=== PATIENT | male | born 1960 | race Asian ===

== ENCOUNTER 2018-12-19 23:23 | Inpatient (IN) | payer BC, MEDICAID ==
[~2018-12-19] VITALS: Ht 165.1 cm; Wt 63.5 kg
[2018-12-19 23:25] VITALS: BP_SYST 116
--- NOTE | 2018-12-19 23:27 | NUR ---
Patient to ER bed 6 to gown for evaluation. Side rails up. Report given to JADE MACK.
--- NOTE | 2018-12-19 23:59 | NUR ---
Dr. Delgadillo bedside for initial Pt eval
--- NOTE | 2018-12-20 00:05 | NUR ---
Pt BIBA to ED C/O G-TUBE coming out of position. Replacement D/T tear and resistance. Pt is a resident of [facility]. No other complaints and or injuries noted. VSS no s/s of acute distress. Resting on gurney with rails up
--- NOTE | 2018-12-20 01:12 | NUR ---
Dr. Delgadillo bedside for possible G Tube reinsertion procedure. Pt in stable condition
--- NOTE | 2018-12-20 01:20 | NUR ---
Portable X Ray bedside, Pt in stable condition
[2018-12-20] MEDS ORDERED: GASTROGRAFIN 120 ML ONE (01:31)
--- NOTE | 2018-12-20 03:40 | NUR ---
ER Accu chk : 95, and bed rubber aware
[2018-12-20] MEDS ORDERED: D5/0.45 NS 1,000 ML IV ONE (04:00)
--- NOTE | 2018-12-20 04:05 | NUR ---
Joyner Cath changed to Brand New per [facility] protocol
[2018-12-20] MEDS ORDERED: TYLL650 GT (04:18)
[2018-12-20] MEDS ORDERED: LABE300T3 GT (04:18)
[2018-12-20] MEDS ORDERED: CHLO237L3 TP (04:18)
[2018-12-20] MEDS ORDERED: LEVETIRACETAM GT (04:18)
[2018-12-20] MEDS ORDERED: ALBU2.5V7 INH (04:18)
[2018-12-20] MEDS ORDERED: HYT1 GT (04:18)
[2018-12-20] MEDS ORDERED: CILO50TA GT (04:18)
[2018-12-20] MEDS ORDERED: DOCU-144 GT (04:18)
[2018-12-20] MEDS ORDERED: ATRMDI INH (04:18)
[2018-12-20] MEDS ORDERED: OMEP20CA10 GT (04:18)
[2018-12-20] MEDS ORDERED: NOR10 GT (04:18)
[2018-12-20] MEDS ORDERED: BETH10TA8 GT (04:18)
[2018-12-20] MEDS ORDERED: SENN8.6T19 GT (04:18)
[2018-12-20] MEDS ORDERED: UTI-STAT GT (04:18)
--- NOTE | 2018-12-20 04:31 | NUR ---
Transfer to Telemetry via ACLS protocol. Licensed nurse present. IV present no signs or symptoms of infiltration.
--- NOTE | 2018-12-20 04:31 | NUR ---
ADMISSION NOTE Received patient from ER via bennett, received report from MARTINA tanner. Patient admitted with diagnosis of Gt malfunction.
--- NOTE | 2018-12-20 04:31 | NUR ---
Patient will be admitted to care of Dr. Stockton. Admitted to Telemetry unit. Will go to room 121. Belongings list completed. Summary report printed. Report will be given at bedside.
--- NOTE | 2018-12-20 04:44 | NUR ---
Consultation Paged Reason for Consult: GI Malfunction Was consult called: Y Person who was notified: Cassidy Consulting Physician: Brooks Burton (Dr. Jarrell is parts salesperson) International Manager Ordering Physician: Dr. Stockton
[2018-12-20 04:48] VITALS: BP_SYST 106
--- NOTE | 2018-12-20 05:15 | NUR ---
ORAL /SKIN CARE DONE. SUCTIONED TRACHE WITH THICK YELLOWISH PHLEGM. CONNELLY DRAINING WELL HAZY COLOR URINE. TOTAL CARE. DNR. SAT 99% LOWERED O2 VIA MASK FROM 6LITERS TO 5 LITERS. YELLOWISH /GREENISH OOZING FROM G TUBE SITE. CHANGED DRESSING.
[2018-12-20] MEDS: INSULIN REGULAR, HUMAN 100 UNITS/ML, 10 ML VIAL (humuLIN R) SUBCUT SCH ×4 (06:00→23:21)
--- NOTE | 2018-12-20 06:20 | NUR ---
BLOOD SUGAR 127MG/DL .NO INSULIN COVERAGE. NPO.
--- NOTE | 2018-12-20 07:15 | NUR ---
OPENING NOTE RECEIVED PT FROM NIGHT RN. PT IS A&OX0. PT IS LAYING SUPINE IN BED. PT FALL PRECAUTIONS IN PLACE, BED IN LOWEST POSITION, BED ALARM ON, BED NEAR NURSE'S STATION, CALL LIGHT WITHIN REACH. PT HAS A TRACH AND IS ON 6 LITERS OF OXYGEN. PATIENT IS IN STABLE CONDITION. WILL CONTINUE TO MONITOR. Addendum: 12/20/18 at 1109 by Anya Khan RN PT OPENS EYES SPONTANEOUSLY, PROVIDED PT WITH REALITY ORIENTATION, DOES NOT TRACK. F/C DRAINING VIA GRAVITY. PT NPO FOR G TUBE MALFUNCTION. PT HAS AN IV CATHETER, PATENT, NO SIGNS OF INFECTION OR INFILTRATION NOTED, RUNNING IV FLUIDS ORDERED. SAFETY, ASPIRATION PRECAUTIONS IN PLACE. PT HAS NO S/S OF DISTRESS OR SOB NOTED.
[2018-12-20 08:45] VITALS: BP_SYST 125
--- NOTE | 2018-12-20 09:00 | NUR ---
ROUNDING DR BENITEZ IN TO ASSESS PT'S G TUBE. MD REQUESTED A 22 F TO REPLACE G TUBE AT BEDSIDE LATER TODAY. PATIENT TOLERATED WELL. PT IS IN STABLE CONDITION. HEAD OF BED AT 30 DEGREES. PATIENT DOES NOT APPEAR TO BE IN ANY DISTRESS OR DISCOMFORT. BED IN LOWEST POSITION, NEAR NURSE'S STATION. WILL CONTINUE TO MONITOR.
--- NOTE | 2018-12-20 09:24 | NUR ---
MD KELLY BENITEZ CAME IN TO CHANGE G TUBE AT BEDSIDE. G TUBE 22 SETSWANA AND CLAMP AT BEDSIDE. MD UNABLE TO CHANGE G TUBE AT BEDSIDE, ATTEMPTED SEVERAL TIMES BUT WAS UNSUCCESSFUL. MD REQUESTED CONSENT TO BE OBTAINED FOR EGD TOMORROW TO REPLACE G TUBE. PATIENT TOLERATED WELL, DOES NOT APPEAR TO BE IN ANY DISTRESS, OR DISCOMFORT. HEAD OF BED AT 30 DEGREES. BED IN LOWEST POSITION, ROOM NEAR NURSE'S STATION. WILL CONTINUE TO MONITOR.
--- NOTE | 2018-12-20 10:00 | NUR ---
ROUNDING NOTE PT IS LAYING IN SUPINE POSITION. HOB 30 DEGREES. HEELS FLOATING, PILLOWS PLACED TO OFFSET WEIGHT. SUCTIONED PATIENT'S MOUTH, THEN PERFORMED DEEP SUCTIONING WITH 3 PASSES. PATIENT TOLERATED WELL, OXYGEN SATURATION 99%. PATIENT IS IN STABLE CONDITION. PATIENT HAD NO SIGNS OR SYMPTOMS OF DISTRESS OR PAIN. BED IN LOWEST POSITION. SIDE RAILS UP. WILL CONTINUE TO MONITOR.
--- NOTE | 2018-12-20 10:13 | NUR ---
Nutrition Update Edward Scale 9 noted. Pt admitted for GT malfunction. Diet: NPO BMI: 23.3 kg/m2 RD to follow per nutrition care standards.
[2018-12-20 10:36] VITALS: BP_SYST 125
--- NOTE | 2018-12-20 12:00 | NUR ---
ROUNDING NOTE PATIENT IS LAYING COMFORTABLY IN SUPINE POSITION, HEAD OF BED 30 DEGREES. PATIENT IS IN STABLE CONDITION, NO SIGNS OR SYMPTOMS OF DISTRESS OR PAIN. BED IN LOWEST POSITION. WILL CONTINUE TO MONITOR.
[2018-12-20 12:19] VITALS: BP_SYST 108
--- NOTE | 2018-12-20 14:50 | NUR ---
ROUNDING NOTE PATIENT LAYING COMFORTABLY IN BED. HEAD OF BED 30 DEGREES. PATIENT HAS NO SIGNS OR SYMPTOMS OF DISTRESS, OR SHORTNESS OF BREATH. PATIENT IS SATURATING AT 97 ON 6 LITERS OF OXYGEN. BED IN LOWEST POSITION, SIDE RAILS UP, CLOSE TO NURSE'S STATION. WILL CONTINUE TO MONITOR.
--- NOTE | 2018-12-20 16:05 | NUR ---
ROUNDING NOTE APPLIED PRESCRIBED MEDICATION TO PATIENT'S RIGHT EYE AND APPLIED AN EYE COVER BANDAGE. PATIENT TOLERATED WELL. SUCTIONED PATIENT'S MOUTH. PATIENT TOLERATED WELL. NO SIGNS OR SYMPTOMS OF DISTRESS, SHORTNESS OR BREATH OR PAIN NOTED. PATIENT'S HEAD OF BED IS 30 DEGREES. PATIENT'S BED IN LOWEST POSITION, NEAR THE NURSE'S STATION. PATIENT IS STABLE, WILL CONTINUE TO MONITOR.
--- NOTE | 2018-12-20 16:09 | NUR ---
MD ROUNDS DR CHACON ROUNDING AWARE OF PATIENT'S CONDITION, NEW ORDERS GIVEN, PER MD PT HAS A SUB CONJUCTIVAL HEMORRHAGE ON RIGHT EYE, SEEN BY VICE PRESIDENT & GENERAL MANAGER [employer] [place] AND IS CHRONIC, NO MEDICATIONS TO BE GIVEN.
[2018-12-20] MEDS ORDERED: ACETAMINOPHEN 650 MG/20.3 ML UDC GT PRN (16:15)
[2018-12-20] MEDS ORDERED: IPRATROPIUM BROMIDE 17 mCg/ACTUATION, 12.9 GM AER.W.ADAP INH SCH (16:15)
[2018-12-20] MEDS ORDERED: NEOMY SULF/BACITRA/POLYMYXIN B 3.5 GM OPHT. OINT. OP ONE (16:15)
[2018-12-20] MEDS ORDERED: IPRATROPIUM BROM 0.5 MG/2.5 ML VIAL.NEB (ATROVENT) INH PRN (16:30)
[2018-12-20 16:35] VITALS: BP_SYST 104; BP_SYST 134
[2018-12-20 16:48] LABS: BASOPHILS % (AUTO) 0.1 % (0.0-2.0); EOSINOPHILS # (AUTO) 0.1 K/uL (0.0-0.4); EOSINOPHILS % (AUTO) 1.1 % (0.0-4.0); HEMOGLOBIN 10.1 g/dL (14.0-18.0); LYMPHOCYTES % (AUTO) 16.9 % (20.5-51.5); MEAN CORPUSCULAR HEMOGLOBIN 32 pg (27-31); MEAN CORPUSCULAR HGB CONC 33 % (32-36); MEAN CORPUSCULAR VOLUME 97 fL (79.0-98.0); MONOCYTES # (AUTO) 0.3 K/uL (0.0-1.0); MONOCYTES % (AUTO) 5.7 % (1.7-9.3); NEUTROPHILS # (AUTO) 4.4 K/uL (1.8-7.7); NEUTROPHILS % (AUTO) 76.2 % (40.0-70.0); PLATELET COUNT (AUTO) 335 K/uL (130-430); RED BLOOD CELL COUNT(AUTO) 3.19 MIL/uL (4.2-6.2); RED CELL DISTRIBUTION WIDTH 13.9 % (9.0-15.0); WHITE BLOOD COUNT (AUTO) 5.7 K/uL (4.8-10.8)
[2018-12-20 16:54] LABS: CALCIUM 9.5 mg/dL (8.4-11.0); CREATININE 0.54 mg/dL (0.55-1.30); GLUCOSE 93 mg/dL (70-99); UREA NITROGEN, BLOOD 13 mg/dL (8-21)
[2018-12-20 16:57] LABS: INR 0.9 (0.80-1.20); PROTHROMBIN TIME 8.9 SECS (9.5-12.5)
[2018-12-20 17:01] LABS: ALANINE AMINOTRANSFERASE 41 U/L (12-78); ALBUMIN 2.5 g/dL (3.4-4.8); ASPARTATE AMINOTRANSFERASE 28 U/L (10-37); TOTAL BILIRUBIN 0.2 mg/dL (0.0-1.0)
[2018-12-20 17:06] LABS: CHLORIDE 98 mmol/L (98-107); POTASSIUM 4.9 mmol/L (3.5-5.1); SODIUM SERUM 142 mmol/L (136-145)
[2018-12-20] MEDS: D5/0.45 NS 1,000 ML IV SCH (17:07)
[2018-12-20 17:09] LABS: GFR AFRICAN AMERICAN 200 mL/min (>90)
[2018-12-20 17:10] LABS: ANION GAP < 3 (5-15)
--- NOTE | 2018-12-20 18:43 | NUR ---
CLOSING NOTE PATIENT IS LAYING SUPINE IN BED. ASPIRATION PRECAUTIONS IN PLACE; HEAD OF BED IS ELEVATED 3O DEGREES. PATIENT IS RECEIVING IV FLUIDS AND IS ON OXYGEN RUNNING AT 6 LITERS. PATIENT HAS NO SIGNS OR SYMPTOMS OF DISCOMFORT, SHORTNESS OF BREATH OR PAIN. CONNELLY CATHETER IN PLACE TO GRAVITY. PATIENT'S BED IS IN LOWEST POSITION, SIDE RAILS UP AND NEAR NURSE'S STATION. PATIENT IS A&OX0. PATIENT IS GOING TO HAVE EGD TO REPLACE G TUBE TOMORROW; CONSENT ALREADY SIGNED. WILL ENDORSE TO NEXT SHIFT. Addendum: 12/20/18 at 1849 by Anya Khan RN pt opens eyes, non verbal, does not track, awake.
--- NOTE | 2018-12-20 19:25 | NUR ---
OPENING NOTE RECEIVED CARE OF PT. PT IS RESTING IN BED IN HIGH KELLEY'S POSITION, OPENS EYES BUT DOES NOT TRACK, AND IS NONVERBAL. IVF ARE INFUSING ORDERED. O2 AT 6L IS ON, PT IS SATTING 93% AT THIS TIME. CONNELLY CATHETER IS INTACT AND DRAINING TO GRAVITY. NO S/S OF ACUTE DISTRESS: NO SOB, NO SIGN OF PAIN OR DISCOMFORT NOTED. SAFETY PRECAUTIONS ARE IN PLACE: BED IS LOCKED IN LOWEST POSITION, SIDE RAILS UP X3, CALL LIGHT WITH PT, BED ALARM ON, CLOSE TO NURSES STATION. PRESSURE AND ASPIRATION PRECAUTIONS MAINTAINED. WILL MONITOR.
[2018-12-20 20:00] VITALS: BP_SYST 128
[2018-12-20] MEDS: LABETALOL HCL 100 MG TABLET GT SCH (20:07)
[2018-12-20] MEDS: TERAZOSIN HCL 1 MG CAPSULE (HYTRIN) GT SCH (20:07)
[2018-12-20] MEDS: SENNOSIDES 8.6 MG TABLET GT SCH (20:07)
[2018-12-20] MEDS: CILOSTAZOL 50 MG TABLET (PLETAL) GT SCH (20:07)
[2018-12-20] MEDS: LevETIRAcetam 500 MG/5 ML UDC ORAL LIQUID GT SCH (20:07)
[2018-12-20] MEDS: BETHANECHOL CHLORIDE 10 MG TABLET (URECHOLINE) GT SCH (20:07)
[2018-12-20] MEDS ORDERED: [UNRECOGNIZED DRUG - OTHER] GT SCH (21:00)
--- NOTE | 2018-12-20 21:05 | NUR ---
ORAL CARE/SUCTION ORAL CARE RENDERED. ORAL AND TRACHEAL SUCTION PROVIDED DUE TO PT INEFFECTIVE COUGH AND ORAL SECRETIONS. PT TOLERATED WELL. NO S/S OF ACUTE DISTRESS. SAFETY, ASPIRATION, AND PRESSURE PRECAUTIONS MAINTAINED. WILL MONITOR.
--- NOTE | 2018-12-20 23:20 | NUR ---
ACCUCHECK BLOOD SUGAR OF 114, NO INSULIN COVERAGE INDICATED PER SLIDING SCALE.
[2018-12-21 00:23] VITALS: BP_SYST 132
[2018-12-21] MEDS: D5/0.45 NS 1,000 ML IV SCH ×3 (02:15→23:07)
--- NOTE | 2018-12-21 02:15 | NUR ---
IVF BAG CHANGE NEW BAG OF D51/2NS HUNG, IVF INFUSING AT 100 CC/HR, NO SIGN OF INFILTRATION AT IV SITE. PT RESTING IN BED, APPEARS COMFORTABLE, NO SIGN OF PAIN OR DISCOMFORT. SAFETY MAINTAINED. WILL MONITOR.
[2018-12-21] MEDS: ALBUTEROL SULFATE 0.083% 2.5 MG/3 ML VIAL.NEB INH PRN ×3 (03:46→14:45)
--- NOTE | 2018-12-21 04:10 | NUR ---
ORAL CARE/SUCTION ORAL CARE RENDERED. ORAL AND TRACHEAL SUCTION PROVIDED DUE TO PT INEFFECTIVE COUGH AND ORAL SECRETIONS. PT TOLERATED WELL. O2 SAT AT 92%. SINUS TACHY ON THE MONITOR REMAINING IN THE 120'S. SAFETY, ASPIRATION, AND PRESSURE PRECAUTIONS MAINTAINED. WILL MONITOR.
[2018-12-21] MEDS: INSULIN REGULAR, HUMAN 100 UNITS/ML, 10 ML VIAL (humuLIN R) SUBCUT SCH ×3 (05:34→17:59)
--- NOTE | 2018-12-21 06:00 | NUR ---
PAGED I PAGED DR. CHACON @ 0600 I SPOKE WITH RADHA CHACON CALLED BACK @ [phone]
--- NOTE | 2018-12-21 06:08 | NUR ---
SPOKE TO DR. CHACON REGARDING PT'S CHANGE IN CONDITION. INFORMED MD THAT PT'S O2 SATS DROPPING TO LOW 80'S. RT CALLED AND SUCTIONED PT AND GAVE BREATHING TREATMENT AND O2 SATS REMAINED IN MID 80'S. PULSE SUSTAINING IN THE 130'S. MD ASKED FOR THE PT'S SON TO BE NOTIFIED THAT THE PT'S CONDITION IS DECLINING. NO NEW ORDERS. WILL CALL PT'S SON.
--- NOTE | 2018-12-21 06:23 | NUR ---
ATTEMPTED TO REACH PT'S SON CALLED THE NUMBER ON PT'S FACE SHEET . THERE IS NO RING AND THE MESSAGE SAYS THAT THE PERSON HAS A VOICE MAILBOX THAT IS NOT SET UP YET AND SAYS FRANCISCO, ENDING THE CALL. TRIED THE NUMBER 5 TIMES WITH NO SUCCESS. WILL CONTINUE TRYING TO REACH SON.
--- NOTE | 2018-12-21 06:40 | NUR ---
CALLED [facility] TO SEE IF THEY HAD ANOTHER NUMBER ON FILE FOR PT'S SON. MARTINA MCCLOUD SPOKE WITH MARTINA BOWLES, WHO INFORMED THAT THEY HAD NO OTHER NUMBER ON FILE.
--- NOTE | 2018-12-21 06:57 | NUR ---
CLOSING NOTE PT IS IN BED IN HIGH KELLEY'S POSITION, O2 SAT IS UP TO 92% ON 9L O2. PULSE REMAINS IN THE HIGH 130'S. PT'S SKIN IS WARM AND DRY TO TOUCH. ABDOMINAL DRESSING AROUND GTUBE WAS CHANGED. WILL ENDORSE TO DAY SHIFT RN TO CONTINUE TO TRY TO REACH PT'S SON, WHOM WE HAVE NOT BEEN ABLE TO REACH YET. ALL NEEDS MET DURING SHIFT. SAFETY, ASPIRATION, AND PRESSURE PRECAUTION ARE IN PLACE. WILL ENDORSE PT CARE TO DAY SHIFT RN.
[2018-12-21] MEDS ORDERED: MIDAZOLAM HCL 5 MG/5 ML VIAL ONE ×2 (07:08)
[2018-12-21] MEDS ORDERED: fentaNYL CITRATE/PF 100 MCG/2 ML AMP ONE (07:09)
[2018-12-21] MEDS ORDERED: BENZOCAINE 20% 0.5mL UD SPRAY MM ONE (07:09)
--- NOTE | 2018-12-21 07:45 | NUR ---
OPENING NOTE RECEIVED PT IN BED. PT IS AWAKE AND PT OPENS EYES SPONTANEOUSLY, PROVIDED PT WITH REALITY ORIENTATION, DOES NOT TRACK. PT FALL PRECAUTIONS IN PLACE, BED IN LOWEST POSITION, BED ALARM ON, BED NEAR NURSE'S STATION. PT HAS A TRACH AND IS ON 10 LITERS OF OXYGEN WITH SATURATION OF 92%. PATIENT IS IN STABLE CONDITION. WILL CONTINUE TO MONITOR. F/C DRAINING VIA GRAVITY. PT NPO FOR G TUBE MALFUNCTION. PT HAS AN IV CATHETER, PATENT, NO SIGNS OF INFECTION OR INFILTRATION NOTED, RUNNING IV FLUIDS ORDERED. SAFETY, ASPIRATION PRECAUTIONS IN PLACE. PT HAS NO S/S OF DISTRESS OR SOB NOTED.
[2018-12-21 08:00] VITALS: BP_SYST 113
--- NOTE | 2018-12-21 08:20 | NUR ---
MD OLMAN CARRASCO SPOKE WITH DR CHACON IN REGARDS TO HIS HEART RATE WAS 138 AND HIS OXYGEN WAS 86% ON 10 LITERS VIA MASK, MD GAVE NEW ORDERS. RT AT BEDSIDE AND GAVE BREATHING TREATMENT AND INCREASED PERCENTAGE TO 98% AND CONTINUED WITH 10 LITERS VIA MASK.
--- NOTE | 2018-12-21 08:25 | NUR ---
G TUBE REPLACEMENT G TUBE REPLACEMENT WAS UNABLE TO BE DONE DUE TO PATIENT'S HEART RATE AND CONDITION. SPOKE WITH DR BENITEZ AND PER TO BE DONE TOMORROW IN AM . Addendum: 12/21/18 at 1200 by Anya Khan RN SATURATION WAS 88% ON 10 LITERS VIA TRACH MASK.
[2018-12-21] MEDS ORDERED: NS 500 ML IV ONE (08:30)
[2018-12-21] MEDS ORDERED: DILTIAZEM HCL 25 MG/5 ML VIAL IVP ONE (08:30)
--- NOTE | 2018-12-21 08:43 | NUR ---
FAMILY CALL SPOKE WITH SON KEVIN IN REGARDS TO PATIENT'S CONDITION, SON WILL COME AND SEE PT, SPOKE WITH HIM IN REGARDS TO POLST AND HE VERIFIED COMFORT FOCUSED CARED STATED ON THE POLST FORM. CHARGE NURSE AWARE.
[2018-12-21] MEDS: amLODIPine BESYLATE 10 MG TABLET GT SCH (08:45)
[2018-12-21] MEDS: OMEPRAZOLE 20 MG CAPSULE.DR (PriLOSEC) GT SCH (08:45)
[2018-12-21] MEDS: BETHANECHOL CHLORIDE 10 MG TABLET (URECHOLINE) GT SCH ×2 (08:45→15:00)
[2018-12-21] MEDS: LABETALOL HCL 100 MG TABLET GT SCH ×2 (08:45→20:02)
[2018-12-21] MEDS: LevETIRAcetam 500 MG/5 ML UDC ORAL LIQUID GT SCH ×2 (08:45→20:01)
[2018-12-21] MEDS: TERAZOSIN HCL 1 MG CAPSULE (HYTRIN) GT SCH ×2 (08:45→20:01)
[2018-12-21] MEDS: CILOSTAZOL 50 MG TABLET (PLETAL) GT SCH ×2 (08:45→20:01)
[2018-12-21] MEDS: DOCUSATE SODIUM 100 MG CAPSULE PO SCH (08:46)
--- NOTE | 2018-12-21 08:50 | NUR ---
FEVER PT HAS A TEMPERATURE OF 100.5, DR CHACON NOTIFIED AND GAVE NEW ORDERS. COOLING MEASURES IN PLACE. WILL CONTINUE TO MONITOR PT FOR ANY CHANGES, HEART RATE CONTINUES TO BE IN THE 130'S.
[2018-12-21] MEDS ORDERED: CHLORHEXIDINE GLUCONATE 15 ML/DOSE, 480 ML MM SCH (09:00)
[2018-12-21] MEDS ORDERED: ACETAMINOPHEN 650 MG SUPP.RECT RC PRN (09:00)
[2018-12-21] MEDS: NEOMY SULF/BACITRA/POLYMYXIN B 3.5 GM OPHT. OINT. OP SCH ×2 (09:01→20:00)
[2018-12-21] MEDS ORDERED: ACETAMINOPHEN 650 MG SUPP.RECT RC ONE (09:08)
--- NOTE | 2018-12-21 09:23 | NUR ---
MD OLMAN CARRASCO CHARGE NURSE SPOKE WITH DR CHACON IN REGARDS TO PATIENT'S CONDITION, MADE HIM AWARE THAT PT RECEIVED CARDIZEM AND TYLENOL PRN SUPPOSITORY FOR FEVER, AND BOLUS, PER MD HE WILL COME SEE PT AND GIVE NEW ORDERS, B/P 95/62, 124. MADE HIM AWARE THAT SON WAS NOTIFIED AND WILL BE COMING IN TO SEE PT.
--- NOTE | 2018-12-21 10:30 | NUR ---
ROUNDS PT IN BED, NO S/S OF DISTRESS OR SOB NOTED, PT HAS NO FACIAL GRIMACING NOTED FOR PAIN, PT IN STABLE CONDITION, SON AT BEDSIDE, WILL CONTINUE TO MONITOR PT FOR ANY CHANGES, PT RESTING COMFORTABLY.
--- NOTE | 2018-12-21 11:26 | NUR ---
MD ROUNDS DR CHACON CAME AND SPOKE WITH SON KEVIN ABOUT PATIENT'S CONDITION AND POSSIBILITY OF HOSPICE OPTION. CONFIRMED WITH SON KEVIN THAT PATIENT IS ONLY COMFORT MEASURES, NO VENT, NO CPR AND COMFORT MEASURES ONLY. MD AWARE THAT PT IS ON 10 LITERS VIA TRACH WITH 98% AND HIS SATURATION IS 89%. NO NEW ORDERS GIVEN.
--- NOTE | 2018-12-21 12:09 | NUR ---
CONSULTATION PAGED/CALLED Reason for Consultation: RESP FAILURE Person Who was Notified: SPOKE WITH ROZ FROM [facility] . Consulting Physician: Cotton Broker Specialty: PULMO Ordering Physician:
--- NOTE | 2018-12-21 12:10 | NUR ---
ROUNDS PT IN BED, NO S/S OF DISTRESS OR SOB NOTED, PT HAS NO FACIAL GRIMACING NOTED FOR PAIN, PT IN STABLE CONDITION, SON AT BEDSIDE, WILL CONTINUE TO MONITOR PT FOR ANY CHANGES, PT RESTING COMFORTABLY. SATURATION OF 90% ON 10 LITERS VIA TRACH.
[2018-12-21 12:39] VITALS: BP_SYST 100
--- NOTE | 2018-12-21 14:48 | NUR ---
ROUNDS PT IN BED, NO S/S OF DISTRESS, PT HAS NO FACIAL GRIMACING NOTED FOR PAIN, PT IN STABLE CONDITION, SON AT BEDSIDE, WILL CONTINUE TO MONITOR PT FOR ANY CHANGES, PT RESTING COMFORTABLY. PT'S SATURATION WENT DOWN TO 81%, CALLED RT FOR BREATHING TREATMENT AND SUCTION. SATURATION IS NOW 88%.
--- NOTE | 2018-12-21 14:56 | NUR ---
Dietitian Recommendations *If/when medically appropriate, recommend Jevity 1.2 at 65ml/hr (goal rate), FWF 150ml Q6H via GT. Provides: 1872 kcal, 87 gm protein and 1859ml free water daily. Meets: 99% of upper end of estimated calorie needs and 81% of upper end of estimated protein needs. Please see Nutritional Assessment for details. [facility], RD
--- NOTE | 2018-12-21 16:31 | NUR ---
ROUNDS PT IN BED, NO S/S OF DISTRESS, PT HAS NO FACIAL GRIMACING NOTED FOR PAIN, PT IN STABLE CONDITION, SON AT BEDSIDE, WILL CONTINUE TO MONITOR PT FOR ANY CHANGES, PT RESTING COMFORTABLY. PT'S SATURATION IS 91%, HEART RATE IS 105.
[2018-12-21 16:48] VITALS: BP_SYST 117
--- NOTE | 2018-12-21 16:55 | NUR ---
MD ROUNDS DR CORDELIA MENDOZA, AWARE OF PATIENT'S CONDITION.
[2018-12-21] MEDS ORDERED: CEFEPIME 1 GM in D5W 50 ML IV ONE (17:30)
--- NOTE | 2018-12-21 18:11 | NUR ---
CLOSING NOTES PT IN BED. PT IS AWAKE AND PT OPENS EYES SPONTANEOUSLY, PROVIDED PT WITH REALITY ORIENTATION, DOES NOT TRACK. PT FALL PRECAUTIONS IN PLACE, BED IN LOWEST POSITION, BED ALARM ON. PT HAS A TRACH AND IS ON 10 LITERS OF OXYGEN WITH SATURATION OF 94%, HEART RATE OF 101. PATIENT IS IN STABLE CONDITION. F/C DRAINING VIA GRAVITY. PT CONTINUES TO BE NPO, G TUBE REPLACEMENT IN AM. PT HAS AN IV CATHETER, PATENT, NO SIGNS OF INFECTION OR INFILTRATION NOTED, RUNNING IV FLUIDS ORDERED. SAFETY, ASPIRATION PRECAUTIONS IN PLACE. PT HAS NO S/S OF DISTRESS OR SOB NOTED. WILL ENDORSE CARE OF PT TO INCOMING SHIFT.
[2018-12-21 19:10] VITALS: BP_SYST 134
--- NOTE | 2018-12-21 19:10 | NUR ---
OPENING NOTE RECEIVED ENDORSEMENT REPORT FROM MATTIE CARTER AT BEDSIDE. PT IS NONVERBAL. NO SOB NOTED. NO DISTRESS NOTED. CHEST RISE EVEN AND UNLABORED. NO S/S OF PAIN NOTED. IV CLEAN, DRY, PATENT AND INTACT. ORIENTED PT TO HOSPITAL ROOM AND HOW TO USE ROOM PHONE AND CALL LIGHT TO CALL FOR ASSISTANCE. PT UNABLE TO VERBALIZE UNDERSTANDING. SAFETY MEASURES IN PLACE. CALL LIGHT/ROOM PHONE WITHIN REACH, BED ALARM ON, BED WHEELS LOCKED, BED IN LOWEST POSITION, BED WHEELS LOCKED, SIDE RAILS UP X3, BEDSIDE TABLE WITHIN REACH. CONTACT ISOLATION PRECAUTIONS IN PLACE. NO OTHER NEEDS AT THIS TIME. WILL CONTINUE TO MONITOR PT AND CONTINUE PT'S POC.
[2018-12-21] MEDS: IPRATROPIUM BROM 0.5 MG/2.5 ML VIAL.NEB (ATROVENT) INH SCH (19:44)
[2018-12-21] MEDS: LevALBUTEROL HCL 1.25 MG/0.5 ML *CONC.* VIAL.NEB (XOPENEX CONC.) INH SCH (19:45)
[2018-12-21] MEDS: SENNOSIDES 8.6 MG TABLET GT SCH (20:01)
[2018-12-21] MEDS: BETHANECHOL CHLORIDE 25 MG TABLET (URECHOLINE) GT SCH (20:02)
--- NOTE | 2018-12-21 20:15 | NUR ---
RN ROUNDS PT RESTING IN BED. NO SOB NOTED. NO DISTRESS NOTED. CHEST RISE EVEN AND UNLABORED. NO S/S OF PAIN NOTED. SAFETY MEASURES IN PLACE. NO OTHER NEEDS AT THIS TIME. WILL CONTINUE TO MONITOR PT AND CONTINUE PT'S POC.
--- NOTE | 2018-12-21 22:20 | NUR ---
RN ROUNDS PT RESTING IN BED. NO DISTRESS NOTED. CHEST RISE EVEN AND UNLABORED. NO S/S OF PAIN NOTED. SAFETY MEASURES IN PLACE. NO NEEDS AT THIS TIME. WILL CONTINUE TO MONITOR PT AND CONTINUE PT'S POC.
--- NOTE | 2018-12-22 00:10 | NUR ---
RN ROUNDS PT RESTING IN BED. NO DISTRESS NOTED. CHEST RISE EVEN AND UNLABORED. NO S/S OF PAIN NOTED. IVF INFUSING WELL. SAFETY MEASURES IN PLACE. NO NEEDS AT THIS TIME. WILL CONTINUE TO MONITOR PT AND CONTINUE PT'S POC.
[2018-12-22 00:29] VITALS: BP_SYST 133
[2018-12-22] MEDS: LevALBUTEROL HCL 1.25 MG/0.5 ML *CONC.* VIAL.NEB (XOPENEX CONC.) INH SCH ×4 (00:53→19:20)
[2018-12-22] MEDS: IPRATROPIUM BROM 0.5 MG/2.5 ML VIAL.NEB (ATROVENT) INH SCH ×4 (00:53→19:20)
--- NOTE | 2018-12-22 01:26 | NUR ---
BS 116 NO INSULIN COVERAGE NEEDED PER SLIDING SCALE PROTOCOL
--- NOTE | 2018-12-22 02:40 | NUR ---
RN ROUNDS PT RESTING IN BED WITH EYES CLOSED. NO SOB NOTED. NO DISTRESS NOTED. CHEST RISE EVEN AND UNLABORED. NO S/S OF PAIN NOTED. NO NEEDS AT THIS TIME. SAFETY MEASURES IN PLACE. WILL CONTINUE TO MONITOR PT AND CONTINUE PT'S POC.
[2018-12-22] MEDS: INSULIN REGULAR, HUMAN 100 UNITS/ML, 10 ML VIAL (humuLIN R) SUBCUT SCH ×4 (05:44→18:00)
--- NOTE | 2018-12-22 05:45 | NUR ---
BS 114 NO INSULIN COVERAGE AT THIS TIEM PER SLIDING SCALE PROTOCOL
--- NOTE | 2018-12-22 06:52 | NUR ---
CLOSING NOTE PT RESTING IN BED. NO SOB NOTED. NO DISTRESS NOTED. CHEST RISE EVEN AND UNLABORED. NO S/S OF PAIN NOTED. NO S/S OF PAIN THROUGHOUT SHIFT. ALL NEEDS MET THROUGHOUT SHIFT. ALL SCHEDULED MEDICATIONS ADMINISTERED ORDERED. CONNELLY EMPTYING TO GRAVITY THROUGHOUT SHIFT. SAFETY MEASURES IN PLACE THROUGHOUT SHIFT. CALL LIGHT/ROOM PHONE WITHIN REACH, BED ALARM ON, BED WHEELS LOCKED, BED IN LOWEST POSITION, BED WHEELS LOCKED, SIDE RAILS UP X2, BEDSIDE TABLE WITHIN REACH. NO NEEDS AT THIS TIME. WILL ENDORSE PT CARE TO DAY NURSE.
[2018-12-22] MEDS ORDERED: BENZOCAINE 20% 0.5mL UD SPRAY MM ONE (07:01)
[2018-12-22] MEDS ORDERED: fentaNYL CITRATE/PF 100 MCG/2 ML AMP ONE (07:01)
[2018-12-22 08:00] VITALS: BP_SYST 136
--- NOTE | 2018-12-22 08:08 | NUR ---
RN OPENING NOTE RECEIVED SBAR REPORT FROM ENDORSING RN AT BEDSIDE. SEE VS FLOW SHEET.
--- NOTE | 2018-12-22 08:26 | NUR ---
DR. BENITEZ AT BEDSIDE/PEG CONFIRMED FOR THIS MORNING MD SIGNED CONSENT.
[2018-12-22] MEDS: TERAZOSIN HCL 1 MG CAPSULE (HYTRIN) GT SCH ×2 (08:30→21:54)
[2018-12-22] MEDS: CILOSTAZOL 50 MG TABLET (PLETAL) GT SCH ×2 (08:31→21:56)
[2018-12-22] MEDS: LevETIRAcetam 500 MG/5 ML UDC ORAL LIQUID GT SCH ×2 (08:31→21:53)
[2018-12-22] MEDS: amLODIPine BESYLATE 10 MG TABLET GT SCH (08:31)
[2018-12-22] MEDS: LABETALOL HCL 100 MG TABLET GT SCH ×2 (08:32→21:55)
[2018-12-22] MEDS: OMEPRAZOLE 20 MG CAPSULE.DR (PriLOSEC) GT SCH (08:32)
[2018-12-22] MEDS: BETHANECHOL CHLORIDE 25 MG TABLET (URECHOLINE) GT SCH ×3 (08:32→21:55)
[2018-12-22] MEDS: DOCUSATE SODIUM 100 MG CAPSULE PO SCH (08:33)
--- NOTE | 2018-12-22 08:34 | NUR ---
0900 PO/G-TUBE MEDS HELD DUE TO PEG PROCEDURE.
[2018-12-22] MEDS: MIDAZOLAM HCL 5 MG/5 ML VIAL ONE ×2 (08:49→08:54)
[2018-12-22] MEDS: NEOMY SULF/BACITRA/POLYMYXIN B 3.5 GM OPHT. OINT. OP SCH ×2 (09:00→21:53)
[2018-12-22] MEDS ORDERED: 0.45% NACL 1,000 ML IV SCH (10:15)
[2018-12-22] MEDS ORDERED: FUROSEMIDE 20 MG/2 ML VIAL IVP ONE (10:15)
[2018-12-22] MEDS: CEFEPIME 1 GM in D5W 50 ML IV SCH ×2 (11:34→21:56)
[2018-12-22 12:00] VITALS: BP_SYST 149
--- NOTE | 2018-12-22 14:15 | NUR ---
WOUND CARE/PHOTO DOCUMENTATION
--- NOTE | 2018-12-22 15:36 | NUR ---
WOUND EVALUATION: Late note for 1535 secondary to patient care. Wound Consult received from Dr. Stockton. Thank you, Dr. Stockton, for the consult. Patient received in a [place] Bed with an IsoFlex MIRTHA mattress with low air loss therapy initiated, awake, verbal, nonresponsive to verbal commands. Patient is unable to turn in bed independently. Edward Score is a 9. Past Medical History: CVA, Encephalopathy, Dysphagia, Chronic Respiratory Failure, Tracheostomy, Intracerebral Hemorrhage, Right Eye Keratitis and Conjunctival Hemorrhage, G-tube placement. Admitted for G-tube dysfunction. Recent Labs: WBC 5.7, RBC 3.19, hemoglobin 10.1, hematocrit 31.0, BUN 13, creatinine 0.54, GFR 165, albumin 2.9, PT 8.9. Microbiology: MRSA screen results negative. Tracheal aspirate culture results contaminated with saliva. Intrinsic factors that delay wound healing: Encephalopathy, chronic respiratory failure, hypoalbuminemia. Extrinsic factors that delay wound healing: Immobility. Wound Assessment: 1. Left Buttock: Reopened scar tissue related to intertriginous dermatitis, present on admission. Site has sporadic areas of red tissue and pink scar tissue. No odor, scant sanguineous drainage. Periwound intact. Surrounding tissue has scar tissue. Site measures 2.3 cm x 1.5 cm. 2. Right Buttock: Reopened scar tissue related to intertriginous dermatitis, present on admission. Site has sporadic areas of red tissue and pink scar tissue. No odor, scant sanguineous drainage. Periwound intact. Surrounding tissue has scar tissue. Site measures 3.7 cm x 3.0 cm. Recommend: Cleanse wounds with normal saline. Pat dry. Apply moisture barrier cream to wounds and danae-wounds. Apply Hydrogel to any portion of wounds not covered by moisture barrier cream. Cover with Sacral foam dressing (by first pushing dressing into sulcus area with fingertips, then spreading dressing out across buttocks on each side. Perform wound care daily, and as needed for dressing soiling or dislodgement. Also recommend: Reposition patient side to side only every 2 hours with pillow support (place one pillow underneath trunk above buttock wound site and one pillow underneath pelvis below buttock wound site: You should be able to place place your hand in the space underneath buttock), and off-load pressure areas with pillows for pressure re-distribution. Offload, elevate and float bilateral heels with one pillow lengthwise under each extremity at all times. Perform skin care and monitor skin integrity Q shift. Use moisture barrier cream on buttocks and other moisture susceptible areas QID and as needed for soiling. Maintain patient on a low air-loss mattress.
--- NOTE | 2018-12-22 15:45 | NUR ---
DESATURATION SPO2 84% EVEN AFTER DEEP TRACH SUCTIONING AND REPOSITIONING. RT CALLED TO BEDSIDE, BREATHING TX INCREASED SPO2 TO 88%. CHARGE NURSE UPDATED.
[2018-12-22 16:19] VITALS: BP_SYST 132
--- NOTE | 2018-12-22 19:03 | NUR ---
CLOSING NOTE SBAR REPORT WILL BE ENDORSED TO RECEIVING RN AT BEDSIDE. SEE VS FLOW SHEET.
[2018-12-22 19:10] VITALS: BP_SYST 135
--- NOTE | 2018-12-22 19:15 | NUR ---
OPENING NOTE RECEIVED ENDORSEMENT REPORT FROM MATTIE MCCLOUD AT BEDSIDE. PT IS NONVERBAL. NO SOB NOTED. NO DISTRESS NOTED. CHEST RISE EVEN AND UNLABORED. NO S/S OF PAIN NOTED. IV CLEAN, DRY, PATENT AND INTACT. CONNELLY CATHETER EMPTYING TO GRAVITY. PT TOLERATING TRACH TO T- BAR AT 10 L WELL. TUBEFEEDING INFUSING WELL AT ORDERED RATE. ORIENTED PT TO HOSPITAL ROOM AND HOW TO USE ROOM PHONE AND CALL LIGHT TO CALL FOR ASSISTANCE. PT UNABLE TO VERBALIZE UNDERSTANDING. SAFETY MEASURES IN PLACE. CALL LIGHT/ROOM PHONE WITHIN REACH, BED ALARM ON, BED WHEELS LOCKED, BED IN LOWEST POSITION, BED WHEELS LOCKED, SIDE RAILS UP X3, BEDSIDE TABLE WITHIN REACH. NO OTHER NEEDS AT THIS TIME. WILL CONTINUE TO MONITOR PT AND CONTINUE PT'S POC.
--- NOTE | 2018-12-22 21:50 | NUR ---
BS 110 NO INSULIN COVERAGE PER SLIDING SCALE PROTOCOL.
[2018-12-22] MEDS: SENNOSIDES 8.6 MG TABLET GT SCH (21:55)
--- NOTE | 2018-12-22 21:55 | NUR ---
MED PASS PT RESTING IN BED. NO SOB NOTED. NO DISTRESS NOTED. CHEST RISE EVEN AND UNLABORED. NO S/S OF PAIN NOTED. SCHEDULED MEDICATIONS ADMINISTERED ORDERED. PT TOLERATED WELL. NO OTHER NEEDS AT THIS TIME. SAFETY MEASURES IN PLACE. NO OTHER NEEDS AT THIS TIME. WILL CONTINUE TO MONITOR PT AND CONTINUE PT'S POC.
[2018-12-23 00:07] VITALS: BP_SYST 70
--- NOTE | 2018-12-23 00:55 | NUR ---
BS 176 2 UN OF REGULAR INSULIN ADMINISTERED PER SLIDING SCALE PROTOCOL
[2018-12-23] MEDS: IPRATROPIUM BROM 0.5 MG/2.5 ML VIAL.NEB (ATROVENT) INH SCH ×3 (00:56→13:00)
[2018-12-23] MEDS: ALBUTEROL SULFATE 0.083% 2.5 MG/3 ML VIAL.NEB INH PRN (00:57)
[2018-12-23] MEDS: LevALBUTEROL HCL 1.25 MG/0.5 ML *CONC.* VIAL.NEB (XOPENEX CONC.) INH SCH ×3 (00:57→13:00)
[2018-12-23] MEDS: INSULIN REGULAR, HUMAN 100 UNITS/ML, 10 ML VIAL (humuLIN R) SUBCUT SCH ×3 (01:24→12:06)
--- NOTE | 2018-12-23 05:12 | NUR ---
BS 164 2 UN OF REGULAR INSULIN ADMINISTERED PER SLIDING SCALE PROTOCOL
[2018-12-23 08:00] VITALS: BP_SYST 106
--- NOTE | 2018-12-23 08:00 | NUR ---
initial notes rec patient asleep , arousable to deep stimuli. ivf infusing well on the r forearm. pt with trache connected to t bar. resp easy and unlabored. no sob noted. bed to the lowest position and side rails up and locked. pt is close to the nurses station. will continue to monitor patient.
[2018-12-23 09:42] VITALS: BP_SYST 106
[2018-12-23] MEDS: CEFEPIME 1 GM in D5W 50 ML IV SCH (10:13)
[2018-12-23] MEDS: DOCUSATE SODIUM 100 MG CAPSULE PO SCH (10:14)
[2018-12-23] MEDS: NEOMY SULF/BACITRA/POLYMYXIN B 3.5 GM OPHT. OINT. OP SCH (10:14)
[2018-12-23] MEDS: TERAZOSIN HCL 1 MG CAPSULE (HYTRIN) GT SCH (10:15)
[2018-12-23] MEDS: amLODIPine BESYLATE 10 MG TABLET GT SCH (10:16)
[2018-12-23] MEDS: LABETALOL HCL 100 MG TABLET GT SCH (10:17)
[2018-12-23] MEDS: BETHANECHOL CHLORIDE 25 MG TABLET (URECHOLINE) GT SCH (10:17)
[2018-12-23] MEDS: OMEPRAZOLE 20 MG CAPSULE.DR (PriLOSEC) GT SCH (10:18)
[2018-12-23] MEDS: CILOSTAZOL 50 MG TABLET (PLETAL) GT SCH (10:18)
[2018-12-23] MEDS: LevETIRAcetam 500 MG/5 ML UDC ORAL LIQUID GT SCH (10:24)
--- NOTE | 2018-12-23 10:55 | NUR ---
Discharge Planning: DCP faxed pt referral to [facility] (f [phone] p [phone]) DCP to follow up Addendum: 12/23/18 at 1350 by Yue Jensen DP [facility] (f [phone] p [phone]) RM 30C, [facility] ([phone]) 3:00pm P/U. Patient packet taken to nurse station.
--- NOTE | 2018-12-23 11:00 | NUR ---
rounds seen by dr francois with order for d/c once bed available at the [facility]. turned repositioned for comfort.
--- NOTE | 2018-12-23 12:00 | NUR ---
rounds no hypo hyperglycemic reaction noted. turned repositioned for comfort
[2018-12-23 12:36] VITALS: BP_SYST 107
[2018-12-23 13:43] VITALS: BP_SYST 107
--- NOTE | 2018-12-23 17:05 | NUR ---
rounds report given to kapil sinclair at [facility] about the patient. pt is on 5 liters via t bar and sat at 90%.
[2018-12-23 17:33] VITALS: BP_SYST 102
--- NOTE | 2018-12-23 18:02 | NUR ---
closing notes pt was sat at 88 to 89 % prior to d/c , hr was 101. no sob noted. report given to paramedics prior to apple picking supervisor. no sob noted.
== END 2018-12-23 17:53 | DRG 393 ==
LOC: SED 23:23 → STU 12-20 03:49
PROVIDERS: ADMIT Internal Medicine; ATTEND Internal Medicine
PROC: 0D20XUZ Change Feeding Device in Upper Intestinal Tract, External Approach (ICD-10-PCS; principal; 2018-12-22 08:30)
DX: K94.23 Gastrostomy malfunction (principal); J96.20 Acute and chronic respiratory failure, unspecified whether with hypoxia or hypercapnia; G93.40 Encephalopathy, unspecified; E46 Unspecified protein-calorie malnutrition; R13.10 Dysphagia, unspecified; I10 Essential (primary) hypertension; Y83.8 Other surgical procedures as the cause of abnormal reaction of the patient, or of later complication, without mention of misadventure at the time of the procedure; Y73.8 Miscellaneous gastroenterology and urology devices associated with adverse incidents, not elsewhere classified; H16.9 Unspecified keratitis; H11.31 Conjunctival hemorrhage, right eye; Z66 Do not resuscitate; Z51.5 Encounter for palliative care; Y92.89 Other specified places as the place of occurrence of the external cause; I69.391 Dysphagia following cerebral infarction
CPT/HCPCS: 36415; 43760; 71045; 74240-TC; 80053; 82962; 85025; 85610-TC; 87070-TC; 87081; 87205-TC; 93005; 94640; 94760; 99285; G0378; J0692; J1815; J1940; J2250; J3010; J3490; J7040; J7060; J7612; J7613; Q9963